=== PATIENT | female | born 1965 | race Caucasian/White ===

== ENCOUNTER → 2022-04-14 | Outpatient (CLI) | payer OTHER ==
[~2022-04-14] MED LIST: CLARITIN10 MG PO; EFFEXOR XR37.5 M1 PO; MELATONIN3 M2 PO; ONE-TABLET-DAI1 EACH PO; VITAMIN D5000 I3 PO
== END | disposition home or self-care (01) ==
LOC: MRI 08:10
PROVIDERS: ATTEND Family Medicine
DX: I67.89 Other cerebrovascular disease (principal)